=== PATIENT | female | born 2000 | race Caucasian/White ===

== ENCOUNTER 2023-07-29 13:23 | Inpatient (IN) | payer OTHER ==
[2023-07-29] MEDS: ELECTROLYTE-148 SOLN 1,000 ML IV SCH ×2 (13:55→17:56)
[2023-07-29] MEDS ORDERED: AMPICILLIN - 2 GM in SODIUM CHLORIDE 100 ML IVPB ONE (14:00)
[2023-07-29] MEDS ORDERED: AMPICILLIN SODIUM 2 GM VIAL ONE (14:01)
[2023-07-29 14:48] LABS: BASO % 0.3 % (0-2.0); EOS % 0.1 % (0-4.5); HEMATOCRIT 35.9 % (32.4-45.2); HEMOGLOBIN 11.6 GM/dL (10.7-15.3); LYMPH % 8.1 % (8-40); MCH 28.7 pg (25.7-33.7); MCHC 32.3 g/dl (32.0-36.0); MEAN CELL VOLUME 88.8 fl (80-96); MEAN PLT VOLUME 11.5 fl (7.5-11.1); MONO % 8.1 % (3.8-10.2); NEUT % 83.4 % (42.8-82.8); PLATELET COUNT 200 10^3/uL (134-434); RBC 4.05 M/mm3 (3.60-5.2); RDW 14.4 % (11.6-15.6); WHITE BLOOD COUNT 17.3 K/mm3 (4.0-10.0)
[2023-07-29 14:56] LABS: INR 0.96 (0.83-1.09); PROTHROMBIN TIME (PATIENT) 11.1 SEC (9.7-13.0)
[2023-07-29 15:11] VITALS: BMI 23.1
[2023-07-29] MEDS ORDERED: OXYTOCIN 30 UNITS in 0.9% NS 30 UNIT/500 ML INFUS.BAG IVPB SCH ×2 (15:15→17:00)
[2023-07-29 15:16] LABS: POTASSIUM 4.4 mmol/L (3.5-5.1)
[2023-07-29 15:17] LABS: CALCIUM 8.7 mg/dL (8.5-10.1)
[2023-07-29 15:18] LABS: BLOOD UREA NITROGEN 6.1 mg/dL (7-18)
[2023-07-29 15:21] LABS: CREATININE 0.6 mg/dL (0.55-1.3)
[2023-07-29] MEDS ORDERED: FENTANYL/BUPIVACAINE/NS/PF - PCEA - 50 ML DISP.SYRIN EP ONE (15:48)
[2023-07-29] MEDS: FENTANYL/BUPIVACAINE/NS/PF - PCEA - 50 ML DISP.SYRIN EP SCH (16:13)
[2023-07-29] MEDS ORDERED: NALOXONE HCL 0.4 MG/ML VIAL IVPUSH PRN (16:28)
[2023-07-29 17:17] LABS: METHADONE, UR NEGATIVE (NEGATIVE)
[2023-07-29 17:18] LABS: COCAINE, UR NEGATIVE (NEGATIVE); OPIATES, URI NEGATIVE (NEGATIVE); URINE BARBITURATES NEGATIVE (NEGATIVE); URINE BENZODIAZEPINES NEGATIVE (NEGATIVE)
[2023-07-29 17:20] LABS: PHENCYCLIDINE,URINE NEGATIVE (NEGATIVE)
[2023-07-29 17:21] LABS: URINE AMPHETAMINES NEGATIVE (NEGATIVE)
[2023-07-29] MEDS ORDERED: OXYTOCIN 20 UNITS in 0.9% NS 20 UNIT/1,000 ML INFUS.BAG IV ONE (19:52)
[2023-07-29 19:58] LABS: HIV INTERPRETATION NEGATIVE (NEGATIVE)
[2023-07-29] MEDS ORDERED: METHYLERGONOVINE MALEATE 0.2 MG/1 ML AMP IM PRN (20:11)
[2023-07-29] MEDS ORDERED: BENZOCAINE 28 GM HEMORRHOIDAL OINTMENT TP PRN (20:11)
[2023-07-29] MEDS ORDERED: BISACODYL 10 MG SUPP.RECT RC PRN (20:11)
[2023-07-29] MEDS ORDERED: ACETAMINOPHEN 325 MG TABLET (FP) PO PRN (20:11)
[2023-07-29] MEDS ORDERED: WITCH HAZEL 50% (TUCKS) 40 PAD/JAR PAD TP PRN (20:11)
[2023-07-29] MEDS ORDERED: BENZOCAINE 20% 57 GM BOTTLE TP PRN (20:11)
[2023-07-29] MEDS ORDERED: IBUPROFEN 600 MG TABLET (FP) PO PRN (20:11)
[2023-07-29] MEDS ORDERED: OXYTOCIN 20 UNITS in 0.9% NS 20 UNIT/1,000 ML INFUS.BAG IV SCH (20:15)
[2023-07-30 09:02] LABS: BASO % 0.2 % (0-2.0); EOS % 0.3 % (0-4.5); HEMOGLOBIN 10.1 GM/dL (10.7-15.3); LYMPH % 9.8 % (8-40); MCH 29.5 pg (25.7-33.7); MCHC 33.6 g/dl (32.0-36.0); MEAN CELL VOLUME 87.8 fl (80-96); MEAN PLT VOLUME 11.1 fl (7.5-11.1); MONO % 12.3 % (3.8-10.2); NEUT % 77.4 % (42.8-82.8); PLATELET COUNT 151 10^3/uL (134-434); RBC 3.42 M/mm3 (3.60-5.2); RDW 14.8 % (11.6-15.6); WHITE BLOOD COUNT 16.6 K/mm3 (4.0-10.0)
[2023-07-30] MEDS ORDERED: DIPHTH,PERTUSS(ACELL),TET 0.5 ML DISP.SYRIN IM ONE (10:00)
[2023-07-30] MEDS: PRENATAL VITAMINS W/ FOLIC ACID TABLET (FP) PO SCH (10:46)
[2023-07-30] MEDS: FENTANYL/BUPIVACAINE/NS/PF - PCEA - 50 ML DISP.SYRIN EP SCH (20:23)
[2023-07-30] MEDS ORDERED: SENNOSIDES/DOCUSATE COMBO (SENNA PLUS) TABLET (UD) PO PRN (22:00)
[2023-07-31] MEDS: PRENATAL VITAMINS W/ FOLIC ACID TABLET (FP) PO SCH (09:26)
[2023-07-31 09:32] VITALS: BP 107/56; PULSE 94; RESP 17; TEMP 98.7
== END 2023-07-31 16:47 | disposition home or self-care (01) | DRG 560 ==
LOC: JDEL 13:23 → JLDR 13:45 → J3W 21:42
PROVIDERS: ADMIT Obstetrics & Gynecology; ATTEND Obstetrics & Gynecology
PROC: 10E0XZZ Delivery of Products of Conception, External Approach (ICD-10-PCS; principal; 2023-07-29)
PROC: 0W8NXZZ Division of Female Perineum, External Approach (ICD-10-PCS; 2023-07-29)
PROC: 0HQ9XZZ Repair Perineum Skin, External Approach (ICD-10-PCS; 2023-07-29)
DX: O70.0 First degree perineal laceration during delivery (principal); Z3A.40 40 weeks gestation of pregnancy; Z37.0 Single live birth
CPT/HCPCS: 36415; 59025; 80048; 80307; 85025; 85610; 85730; 86780; 86850; 86900; 86901; 87389; 90715